=== PATIENT | male | born 1935 | race Caucasian/White ===

== ENCOUNTER 2022-11-02 16:02 | Outpatient (CLI) | payer MEDICARE, SELFPAY ==
[2022-11-02 18:46] LABS: Hepatitis B Surface Antibody Non-Reactive
[2022-11-04 07:08] LABS: HEPATITIS B SURFACE AG Negative (Negative); Hep C Antibodies Non Reactive (Non Reactive); Hepatitis A AB, Total Negative (Negative); Hepatitis A IgM Antibody Negative (Negative); Hepatitis B Core AB IgM Negative (Negative)
== END 2022-11-02 23:59 | disposition home or self-care (01) ==
PROVIDERS: Referring Provider Physician Assistant; Visit Provider Physician Assistant
DX: Z11.59 Encounter for screening for other viral diseases (principal); C44.519 Basal cell carcinoma of skin of other part of trunk; L43.8 Other lichen planus
CPT/HCPCS: 36415; 80074; 86706; 86708